=== PATIENT | male | born 1975 | race Native Hawaiian/Other Pacific Islander ===

== ENCOUNTER 2017-04-17 12:38 | Emergency (ER) | payer OTHER ==
[~2017-04-17] VITALS: Ht 182.9 cm; Wt 111.1 kg
[2017-04-17 14:54] VITALS: BP 131/85; TEMP 98.2
== END 2017-04-17 15:11 | disposition home or self-care (01) ==
LOC: ED 12:38
PROC: 2W3CX1Z Immobilization of Right Lower Arm using Splint (ICD-10-PCS; principal; 2017-04-17)
DX: S62.306A Unspecified fracture of fifth metacarpal bone, right hand, initial encounter for closed fracture (principal); W22.8XXA Striking against or struck by other objects, initial encounter; Y92.098 Other place in other non-institutional residence as the place of occurrence of the external cause
CPT/HCPCS: 99283

== ENCOUNTER 2018-04-27 22:58 | Emergency (ER) | payer OTHER ==
[~2018-04-27] VITALS: Ht 182.9 cm; Wt 106.6 kg
[2018-04-27 23:44] LABS: PLATELET COUNT 347 K/uL (142-355)
[2018-04-27 23:49] LABS: POTASSIUM 4.1 mmol/L (3.6-5.2); SODIUM 139 mmol/L (136-145)
[2018-04-28 01:02] VITALS: BP 147/94; TEMP 98.1
== END 2018-04-28 01:04 | disposition home or self-care (01) ==
LOC: ED 22:58
PROVIDERS: Internal Medicine
DX: R07.89 Other chest pain (principal); R00.2 Palpitations; R00.0 Tachycardia, unspecified
CPT/HCPCS: 80053; 82550; 84484; 85027; 85379; 93005; 99284; J2270; J2405